=== PATIENT | female | born 1930 | race Caucasian/White ===

== ENCOUNTER 2017-10-10 12:22 | Emergency (ER) | payer OTHER ==
[2017-10-10 12:31] VITALS: BP 154/79; PULSE 74; TEMP 97.5; BMI 17.9
--- NOTE | 2017-10-10 12:59 | PDOC ---
History of Present Illness - General Stated Complaint: PROLAPSED RECTUM Time Seen by Provider: 10/10/17 12:24 History Source: Patient, EMS, [facility] Records Exam Limitations: No Limitations, Dementia - History of Present Illness Initial Comments: 10/10/17 12:58 87y/o F relatively new resident of the [facility] with history of dementia, hypertension, CAD sent here via EMS with complaint of rectal prolapse. Patient has had episodes of rectal prolapse in the past, she has reduce them herself. This episode occurred this morning after a bowel movement following breakfast, she felt the discomfort and notified the staff, who activated EMS. She has no rectal pain or abdominal pain, no active incontinence or bleeding, no nausea or vomiting. No fevers or chills. Prior episode to today was 1 month ago, has occurred only once or twice a year since 4 years ago. She has never seen a colorectal surgeon. Past History - Past Medical History Allergies/Adverse Reactions: Allergies Allergy/AdvReac Type Severity Reaction Status Date / Time No Known Allergies Allergy Verified 10/10/17 12:23 Home Medications: Ambulatory Orders Clopidogrel Bisulfate [Clopidogrel] 75 mg PO DAILY 10/10/17 Cyanocobalamin (Vitamin B-12) [Vitamin B12] 1,000 mcg PO DAILY 10/10/17 Docusate Sodium [Colace] 200 mg PO HS 10/10/17 Montelukast Na [Singulair -] 10 mg PO HS 10/10/17 Quinapril HCl 20 mg PO DAILY 10/10/17 Sennosides [Senna] 2 tab PO HS 10/10/17 Simvastatin 10 mg PO HS 10/10/17 Asthma: Yes Cardiac Disorders: Yes (CAD) COPD: No Dementia: Yes (VESICULAR DEMENTIA) GI Disorders: Yes (PROLAPSED RECTUM) HTN: Yes Hypercholesterolemia: Yes Psychiatric Problems: Yes (ANXIETY, CHRONIC FATIGUE) - Suicide/Smoking/Psychosocial Hx Smoking History: Never smoked Have you smoked in the past 12 months: No Hx Alcohol Use: No Drug/Substance Use Hx: No Review of Systems - Review of Systems Constitutional: No: Chills, Fever, Night Sweats, Unintentional Wgt. Loss Respiratory: No: Shortness of Breath Cardiac (ROS): No: Chest Pain ABD/GI: Yes: Constipated. No: Diarrhea, Nausea, Vomiting : No: Incontinence All Other Systems: Reviewed and Negative *Physical Exam - Vital Signs Last Vital Signs Temp Pulse Resp BP Pulse Ox 97.5 F L 74 18 154/79 98 10/10/17 12:22 10/10/17 12:22 10/10/17 12:22 10/10/17 12:22 10/10/17 12:22 - Physical Exam Comments: 10/10/17 12:59 Vital signs normal. Afebrile. GENERAL: The patient is awake, alert, slight dementia but pleasant and appropriate, in no acute distress. HEAD: Normal with no signs of trauma. EYES: PERRL, EOMI, sclera anicteric, conjunctiva clear with no pallor. ENT: Moist mucous membranes. NECK: Normal range of motion, supple without lymphadenopathy. LUNGS: Breath sounds equal, clear to auscultation bilaterally. No wheeze/ crackles. HEART: Regular rate and rhythm, normal S1 and S2 without murmur or rub. ABDOMEN: Soft/nontender/nondistended. On rectal exam, no current rectal prolapse. Digital rectal exam is normal without palpable mass or blood, sphincter tone is slightly decreased but within normal limits. BS wnl. No guarding or rebound. No palpable masses. No hepatosplenomegaly. EXTREMITIES: Normal range of motion, no edema. 2+ distal pulses. No cords, erythema, or tenderness. NEUROLOGICAL: Cranial nerves II through XII grossly intact. Normal speech, normal gait. PSYCH: Deferred. SKIN: Warm, Dry, no rashes or lesions noted. Medical Decision Making - Medical Decision Making 10/10/17 13:01 87-year-old female with history of rectal prolapse presents for evaluation of prolapse that occurred this morning, now spontaneously resolved. Vital signs are normal, she is well-appearing, and her abdominal/rectal exam are normal at this time. No indication for emergent workup or management Patient is taking Colace and senna, we'll encourage high-fiber diet PCP referral, should follow up with a colorectal surgeon if episodes become more frequent. 10/10/17 17:55 Pt used the restroom to urinate and upon valsava had recurrence of her rectal prolapse. no pain or complaints. The prolapse was easily manually reduced, patient tolerated well. Given the frequency, should have expedite colorectal referral from [facility] PCP. No further emergent care indicated. *DC/Admit/Observation/Transfer Diagnosis at time of Disposition: Rectal prolapse - Discharge Dispostion Disposition: HOME Condition at time of disposition: Improved - Referrals Referrals: Misha Keith MD [Staff Physician] - - Patient Instructions Printed Discharge Instructions: DI for Rectal Prolapse Additional Instructions: The rectal prolapse has spontaneously resolved and no emergent further intervention is necessary. If another episode occurs, the patient may apply gentle pressure to reduce it. If it persists, she should return to the emergency department. Continue Colace and senna, recommend high-fiber diet. Continue your medications as previously prescribed by your physician. [] You should follow up with your primary doctor as soon as possible regarding today's emergency department visit. You should see a colorectal surgeon if episodes occur more frequently. Return to the emergency department for any new or concerning symptoms, particularly persistent pain, bleeding or incontinence, fevers or chills, vomiting or difficulty having a bowel movement. - Post Discharge Activity
== END 2017-10-10 14:34 | disposition home or self-care (01) ==
LOC: FER 12:22
DX: K62.3 Rectal prolapse (principal); F03.90 Unspecified dementia, unspecified severity, without behavioral disturbance, psychotic disturbance, mood disturbance, and anxiety; I10 Essential (primary) hypertension; I25.10 Atherosclerotic heart disease of native coronary artery without angina pectoris; F41.9 Anxiety disorder, unspecified
CPT/HCPCS: 99283-25

== ENCOUNTER 2018-01-09 10:42 | Emergency (ER) | payer OTHER ==
--- NOTE | 2018-01-09 10:58 | PDOC ---
History of Present Illness - General Chief Complaint: Rectal Bleed Stated Complaint: RECTAL BLEED Time Seen by Provider: 01/09/18 10:58 - History of Present Illness Initial Comments: 87y/o resident of the [facility] assisted [facility] facility with history of dementia, hypertension, CAD sent here via EMS with complaint of rectal prolapse. Patient with know hx of rectal prolapse in the past, Today presents with hard bowel movement following breakfast, she felt the discomfort and notified the staff and some blood i the toilet who notified EMS. She currently has no complaints Past History - Past Medical History Allergies/Adverse Reactions: Allergies Allergy/AdvReac Type Severity Reaction Status Date / Time No Known Allergies Allergy Verified 01/09/18 10:44 Home Medications: Ambulatory Orders Clopidogrel Bisulfate [Clopidogrel] 1 tab PO DAILY 01/09/18 Cyanocobalamin [Vitamin B12 -] 1,000 mcg PO DAILY 01/09/18 Docusate Sodium [Colace] 100 mg PO HS 01/09/18 Metoprolol Succinate [Toprol Xl] 25 mg PO HS 01/09/18 Montelukast Na [Singulair -] 10 mg PO HS 01/09/18 Quinapril HCl 20 mg PO DAILY 01/09/18 Sennosides [Senna] 8.6 mg PO HS 01/09/18 Simvastatin 10 mg PO DAILY 01/09/18 Asthma: Yes Cardiac Disorders: Yes (CAD) COPD: No Dementia: Yes (VESICULAR DEMENTIA) GI Disorders: Yes (PROLAPSED RECTUM) HTN: Yes Hypercholesterolemia: Yes Psychiatric Problems: Yes (ANXIETY, CHRONIC FATIGUE) - Suicide/Smoking/Psychosocial Hx Smoking History: Never smoked Have you smoked in the past 12 months: No Hx Alcohol Use: No Drug/Substance Use Hx: No Review of Systems - Review of Systems Comments:: 01/09/18 11:27 ROS: A complete review of 10 out of 10 review of systems is taken and is negative apart from what is previously mentioned below and in the HPI. *Physical Exam - Physical Exam Comments: 01/09/18 11:28 Vitals: Triage Vital signs reviewed General Appearance: no acute distress, well nourished well developed, Head: Atraumatic, Neck: Supple;No Nucal rigidity Chest Wall: Nontender Cardiac: Regular rate and rhythym, no murmurs, no rubs, no gallops, Lungs: Clear to auscultation bilateral, good air movement bilaterally, Abdomen: Soft, non distended, normal bowel sounds, non tender to palpation Rectal: Positive for rectal prolapse, no gross blood noted Extremities: Full range of motion to all extremities, no cyanosis, clubbing, or edema Skin: Warm and dry, no rashes or lesions, no rash, no petechiae Psych: normal mood, normal affect ED Treatment Course - LABORATORY CBC & Chemistry Diagram: 01/09/18 11:10 01/09/18 11:10 Medical Decision Making - Medical Decision Making 01/09/18 11:55 Rectal prolapse noted on examination mucosa feels healthy well-perfused nonischemic reduced at bedside We'll check KUB to rule out other evidence of obstruction labs type and screen CBC given history of GI bleed although likely this is secondary to irritation from constipation per patient's history if hemodynamically stable we'll refer patient for outpatient GI and surgical follow-up. No gross evidence of obstruction H&H within normal limits fecal occult stool negative history examination consistent with rectal prolapse. Patient advised to follow-up with surgery and gastroenterology as an outpatient rectal prolapse precautions discussed with patient. Findings, the need for follow-up and strict return instructions discussed with patient. *DC/Admit/Observation/Transfer Diagnosis at time of Disposition: Rectal prolapse - Discharge Dispostion Disposition: HOME Condition at time of disposition: Stable Decision to Admit order: No - Referrals Referrals: Bernabe Mathur MD [Staff Physician] - Austin Vaz MD [Staff Physician] - - Patient Instructions Printed Discharge Instructions: DI for Rectal Prolapse Additional Instructions: Take an [id number] stool softener as directed on package daily. Follow-up with Dr. Vaz surgery as an outpatient. If rectum prolapses it is okay to reduce it on her own with the help of staff. Return to ED for any concerns. - Post Discharge Activity
[2018-01-09 11:23] LABS: BASO % 0.6 % (0-2.0); EOS % 2.7 % (0-4.5); HEMATOCRIT 39.2 % (32.4-45.2); HEMOGLOBIN 12.8 GM/dl (10.7-15.3); LYMPH % 24.7 % (8-40); MCH 28.1 pg (25.7-33.7); MCHC 32.7 g/dl (32.0-36.0); MEAN PLT VOLUME 9.2 fl (7.5-11.1); MONO % 8.9 % (3.8-10.2); NEUT % 63.1 % (42.8-82.8); PLATELET COUNT 242 K/MM3 (134-434); RBC 4.55 M/mm3 (3.60-5.2); RDW 13.8 % (11.6-15.6); WHITE BLOOD COUNT 6.1 K/mm3 (4.0-10.8)
[2018-01-09 11:34] VITALS: BP 170/97; PULSE 75; TEMP 98.5
[2018-01-09 11:39] LABS: INR 0.99 (0.82-1.09); PROTHROMBIN TIME (PATIENT) 11.1 SEC (10.2-13.0)
[2018-01-09 11:47] LABS: ALBUMIN 3.7 g/dl (3.5-5.0); ALK PHOS 79 U/L (32-92); ANION GAP 5 MMOL/L (8-16); BILIRUBIN,TOTAL 0.7 mg/dl (0.2-1.0); BLOOD UREA NITROGEN 10 mg/dl (7-18); CALCIUM 8.8 mg/dl (8.4-10.2); CHLORIDE 103 mmol/L (98-107); CO2 30 mmol/L (22-28); CREATININE 0.6 mg/dl (0.6-1.3); GLUCOSE,RANDOM 104 mg/dl (74-106); POTASSIUM 3.9 mmol/L (3.5-5.1); SGOT/AST 23 U/L (10-42); SGPT/ALT 15 U/L (10-40); SODIUM 138 mmol/L (136-145); TOT PROT 6.4 g/dl (6.4-8.3)
[2018-01-09 13:09] LABS: RETICULOCYTES 0.86 % (0.5-1.5)
--- NOTE | 2018-01-10 11:43 | EKG ---
Test Reason : Blood Pressure : / mmHG Vent. Rate : 072 BPM Atrial Rate : 072 BPM P-R Int : 148 ms QRS Dur : 136 ms QT Int : 452 ms P-R-T Axes : 053 -05 116 degrees QTc Int : 494 ms SINUS RHYTHM WITH MARKED SINUS ARRHYTHMIA LEFT BUNDLE BRANCH BLOCK ABNORMAL ECG NO PREVIOUS ECGS AVAILABLE Confirmed by KARL PIERCE MD ([id number]) on 01/10/2018 11:43:15 AM Referred By: SUSAN LUNA Confirmed By:KARL PIERCE MD
== END 2018-01-09 13:41 | disposition home or self-care (01) ==
LOC: FER 10:42
DX: K62.3 Rectal prolapse (principal); I10 Essential (primary) hypertension; F41.9 Anxiety disorder, unspecified; E78.00 Pure hypercholesterolemia, unspecified; F03.90 Unspecified dementia, unspecified severity, without behavioral disturbance, psychotic disturbance, mood disturbance, and anxiety; J45.909 Unspecified asthma, uncomplicated; I25.10 Atherosclerotic heart disease of native coronary artery without angina pectoris
CPT/HCPCS: 36415; 71045-TC-FY; 74018-TC-FY; 80053; 82272; 85025; 85044; 85610; 86850; 86900; 86901; 93005; 99282-25